=== PATIENT | female | born 1970 | race Two or more races ===

== ENCOUNTER 2018-06-25 13:42 | Emergency (ER) | payer OTHER ==
--- NOTE | 2018-06-25 15:55 | UC ---
Lower Extremity/Ankle HPI - HPI Summary HPI Summary: 47 y/o female presents to the urgent care c/o left ankle pain and swelling s/p slipping on the ice and falling yesterday. Pt reports she applied ice and took ibuprofen and elevated his ankle yesterday. But today when she woke is was more swollen and limping. Pt rates pain 2/10 at rest and 5/10 with movement and walking. Pt denies any foot or calf pain, numbness or tingling sensation over the left extremity, SOB, chest pain,abdominal pain, N/V/d. - History of Current Complaint Chief Complaint: UCLowerExtremity Stated Complaint: ANKLE INJURY Time Seen by Provider: 06/25/18 15:54 Hx Obtained From: Patient Hx Last Menstrual Period: 06/23/18 Onset/Duration: Sudden Onset, Lasting Days - 1 day, Still Present, Worse Since - today Severity Initially: Moderate Severity Currently: Moderate Pain Intensity: 5 Pain Scale Used: 0-10 Numeric Aggravating Factor(s): Ambulation Alleviating Factor(s): Rest, Elevation, OTC Meds Able to Bear Weight: Yes - Risk Factors Gout Risk Factors: Negative DVT Risk Factors: Negative Septic Arthritis Risk Factor: Negative - Allergies/Home Medications Allergies/Adverse Reactions: Allergies Allergy/AdvReac Type Severity Reaction Status Date / Time Sulfa (Sulfonamide Allergy Unknown Verified 06/25/18 14:36 Antibiotics) Reaction Details environmental Allergy Eyes Uncoded 06/25/18 14:36 Itchy/Swollen/Red/Watery PMH/Surg Hx/FS Hx/Imm Hx Previously Healthy: Yes - Pt denies PMHX - Surgical History Surgical History: None - Family History Known Family History: Positive: Diabetes - Social History Occupation: Employed Full-time Lives: With Family Alcohol Use: None Substance Use Type: None Smoking Status (MU): Never Smoked Tobacco Review of Systems All Other Systems Reviewed And Are Negative: Yes Constitutional: Positive: Negative Skin: Positive: Other - left ankle swelling Eyes: Positive: Negative ENT: Positive: Negative Respiratory: Positive: Negative Cardiovascular: Positive: Negative Gastrointestinal: Positive: Negative Genitourinary: Positive: Negative Motor: Positive: Negative Neurovascular: Positive: Negative Musculoskeletal: Positive: Decreased ROM - left ankle, Other: - left ankle pain s/p fall Neurological: Positive: Negative Psychological: Positive: Negative Is Patient Immunocompromised?: No Physical Exam - Summary Physical Exam Summary: Vital Signs Reviewed: Yes General: well developed, well nourished female, sitting in the examining table w /o any apparent distress Eyes: Positive: Conjunctiva Clear - PERRLA, EOMI, ENT: Positive: Normal ENT inspection, Hearing grossly normal, Pharynx normal, TMs normal Neck: Positive: Supple, Nontender, No Lymphadenopathy Respiratory: Positive: Chest non-tender, Lungs clear, Normal breath sounds, No respiratory distress Cardiovascular: Positive: RRR, No Murmur, Pulses Normal, Brisk Capillary Refill Abdomen Description: Positive: Nontender, No Organomegaly, Soft. Negative: CVA Tenderness (R), CVA Tenderness (L) Bowel Sounds: Positive: Present Musculoskeletal: - Ankle: Pt is able to bear weight and ambulate w/ limping. The L ankle is without obvious asymmetry or deformity when compared to the R ankle. Decreased ROM due to pain. Moderate swelling at the lateral and medial malleolus, Lateral > medial , with tenderness to palpation. No ecchymosis or bruising observed. Talar tilt test is negative for ligament laxity to valgus or varus stress. Negative anterior drawer. Peroneal nerve is intact with strong eversion and plantar flexion. Positive sensation over the Rt foot and Rt ankle, positive pulses, capillary refill intact Neurological Exam: Normal Psychological Exam: Normal Skin: warm and dry Triage Information Reviewed: Yes Vital Signs: Initial Vital Signs Temp 98.7 F 06/25/18 14:31 Pulse 101 06/25/18 14:31 Resp 18 06/25/18 14:31 BP 129/86 06/25/18 14:31 Pulse Ox 98 06/25/18 14:31 Lower Extremity Course/Dx - Course Course Of Treatment: 47 y/o female presents to the urgent care c/o left ankle pain and swelling s/p slipping on the ice and falling yesterday. Pt reports she applied ice and took ibuprofen and elevated his ankle yesterday. But today when she woke is was more swollen and limping. Pt rates pain 2/10 at rest and 5/10 with movement and walking. Pt denies any foot or calf pain, numbness or tingling sensation over the left extremity, SOB, chest pain,abdominal pain, N/V/ d. Hx obtained. Rt ankle X-ray ordered, Impression: moderate Soft tissue swelling overlying bimaeollar, no acute fracture observed by radiologist. Pt most likely with a RT ankle Sprain. Pt immobilized with Jimbo bandage and gel ankle splint to ,Pt has a cane to avoid weight bearing, Rx Ibuprofen PO to decrease swelling and pain. Pt advised RICE, take Ibuprofen PO for pain and to f/u with PCP on orthopedic Dr Mckeon in 1 week if not improvement of symptoms for further treatment. Pt understood and agreed and left the clinic ambulating w / the help of crutches. - Differential Dx/Diagnosis Differential Diagnosis/HQI/PQRI: Arthritis, Contusion, Dislocation, Fracture ( Closed), Sprain, Strain, Tendonitis Provider Diagnosis: Left ankle pain, Left ankle sprain Discharge - Sign-Out/Discharge Documenting (check all that apply): Patient Departure - D/C home All imaging exams completed and their final reports reviewed: Yes - Discharge Plan Condition: Stable Disposition: HOME Prescriptions: Ibuprofen TAB* [Motrin TAB* 600 MG] 600 mg PO Q6H PRN #30 tab PRN Reason: Pain Patient Education Materials: Ankle Sprain (ED) Referrals: Kenneth Mckeon MD [Medical Doctor] - 1 Week Pily Cardona MD [Primary Care Provider] - 1 Week Additional Instructions: 1-Please take medications as directed to alleviate pain and swelling. 2-Please apply ice, keep your ankle immobilized with the splint and Jimbo- bandage. Avoid weight bearing using the crutches. Elevate your ankle 3- Please f/u with Orthopedic Dr Mckeon or your PCP in 1 week is not improvement of symptoms for further evaluation and treatment. - Billing Disposition and Condition Condition: STABLE Disposition: Home
[2018-06-25 16:55] VITALS: BP 134/77
== END 2018-06-25 16:55 | disposition home or self-care (01) ==
LOC: UCEAST 13:42
DX: S93.402A Sprain of unspecified ligament of left ankle, initial encounter (principal); M25.572 Pain in left ankle and joints of left foot; Z91.09 Other allergy status, other than to drugs and biological substances; Z88.2 Allergy status to sulfonamides; W00.0XXA Fall on same level due to ice and snow, initial encounter; Y92.9 Unspecified place or not applicable
CPT/HCPCS: 99213; G0463